=== PATIENT | female | born 1980 | race Hispanic/Latino ===

== ENCOUNTER 2019-02-15 03:25 | Emergency (ER) | payer OTHER ==
[~2019-02-15] VITALS: Ht 142.2 cm; Wt 97.1 kg
[~2019-02-15 03:25] MED LIST: ULTRACET TABLE1 EACH PO
[2019-02-15] MEDS ORDERED: ONDANSETRON HCL INJ 2MG/ML 2ML 2 MG/ML VIAL IV STA (03:37)
[2019-02-15] MEDS ORDERED: SODIUM CHLORIDE 0.9% 1000ML 1,000 ML IV STA (03:37)
[2019-02-15] MEDS ORDERED: MORPHINE SULFATE INJ 4 MG/ML INJ 1ML IV ONE (03:45)
[2019-02-15] MEDS ORDERED: MORPHINE SULFATE INJ 4 MG/ML INJ 1ML ONE (03:57)
[2019-02-15] MEDS ORDERED: ONDANSETRON HCL INJ 2MG/ML 2ML 2 MG/ML VIAL ONE (03:57)
[2019-02-15 04:37] LABS: BASOPHILS % 0.4 % (0.0-1.0); EOSINOPHILS # (AUTO) 0.2 (0.0-0.4); EOSINOPHILS % 1.6 % (0.0-6.0); HEMATOCRIT 38.5 % (34.2-44.1); HEMOGLOBIN 12.3 g/dL (12.0-16.0); LYMPHOCYTES # (AUTO) 2.7 (1.0-3.2); LYMPHOCYTES % 23.5 % (18.0-39.1); MEAN CORPUSCULAR HEMOGLOBIN 25.2 pg (28-32); MEAN CORPUSCULAR HGB CONC 31.9 g/dL (31-35); MEAN CORPUSCULAR VOLUME 78.9 fL (81-99); MONOCYTES # (AUTO) 0.7 (0.2-0.8); MONOCYTES % 5.8 % (4.4-11.3); NEUTROPHILS # (AUTO) 7.7 (2.1-6.9); NEUTROPHILS % 68.3 % (38.7-80.0); PLATELET COUNT 282 x10e3/uL (140-360); RED BLOOD COUNT 4.88 x10e6/uL (3.6-5.1); RED CELL DISTRIBUTION WIDTH 13.6 % (11.7-14.4)
[2019-02-15 04:45] LABS: BACTERIA,URINE MODERATE /HPF
[2019-02-15 04:46] LABS: CLARITY,URINE CLEAR (CLEAR); COLOR,URINE YELLOW (YELLOW); EPITHELIAL CELLS,URINE FEW /LPF; KETONES,URINE NEGATIVE (NEGATIVE); LEUKOCYTE ESTERASE ,URINE TRACE (NEGATIVE); NITRITE,URINE NEGATIVE (NEGATIVE); PROTEIN,URINE DIPSTICK NEGATIVE (NEGATIVE); URINE UROBILINOGEN 0.2 mg/dL (0.2 - 1)
[2019-02-15 04:47] LABS: BILIRUBIN,URINE NEGATIVE (NEGATIVE)
[2019-02-15 04:54] LABS: ALANINE AMINOTRANSFERASE 23 IU/L (0-55); ALBUMIN 3.4 g/dL (3.5-5.0); ALBUMIN/GLOBULIN RATIO 0.8 (0.8-2.0); ALKALINE PHOSPHATASE 99 IU/L (40-150); AMYLASE 72 U/L (25-125); ANION GAP 11.8 mmol/L (8-16); BLOOD UREA NITROGEN 13 mg/dL (7-26); BUN/CREATININE RATIO 19 (6-25); CARBON DIOXIDE 24 mmol/L (22-29); CHLORIDE 102 mmol/L (98-107); CREATININE, SERUM 0.68 mg/dL (0.57-1.11); EST GLOMERULAR FILTRATION RATE > 60 ML/MIN (60-); GLUCOSE 126 mg/dL (74-118); LIPASE 79 U/L (8-78); POTASSIUM 3.8 mmol/L (3.5-5.1); SODIUM 134 mmol/L (136-145)
[2019-02-15] MEDS ORDERED: IOPAMIDOL 370 MG/ML 200 ML INFUS..BTL INJ ONE (05:14)
[2019-02-15] MEDS ORDERED: SODIUM CHLORIDE 0.9% 50ML 50 ML ONE (05:14)
--- NOTE | 2019-02-15 05:42 | Diagnostic Imaging Report ---
EXAMINATION: CHEST SINGLE (PORTABLE) INDICATION: ^ABD PAIN COMPARISON: None FINDINGS: AP view TUBES and LINES: None. LUNGS: Lungs are not well inflated. There are bibasilar atelectasis. There is no evidence of pneumonia or pulmonary edema. PLEURA: No pleural effusion or pneumothorax. HEART AND MEDIASTINUM: The cardiomediastinal silhouette is unremarkable. BONES AND SOFT TISSUES: No acute osseous lesion. Soft tissues are unremarkable. UPPER ABDOMEN: No free air under the diaphragm. IMPRESSION: No acute thoracic abnormality. Signed by: Dr. Eric Crook M.D. on 02/15/2019 5:38 AM
--- NOTE | 2019-02-15 06:10 | Diagnostic Imaging Report ---
EXAM: CT Abdomen and Pelvis WITH contrast INDICATION: ^10D S/P LAP VANGIE, RUQ/FLANK PAIN COMPARISON: MR [facility] 02/02/2019. TECHNIQUE: Abdomen and pelvis were scanned utilizing a multidetector helical scanner from the lung base to the pubic symphysis after administration of IV contrast. Coronal and sagittal reformations were obtained. Routine protocol was performed. Scan was performed when during portal venous phase. IV CONTRAST: 100 mL of Isovue 370 ORAL CONTRAST: Water COMPLICATIONS: None RADIATION DOSE: Total DLP: 767.41 mGy*cm Estimated effective dose: (DLP x 0.015 x size factor) mSv CTDIvol has been reviewed. It is below the limits set by the Radiation Protocol Committee (RPC). Dose modulation, iterative reconstruction, and/or weight based adjustment of the mA/kV was utilized to reduce the radiation dose to as low as reasonably achievable. FINDINGS: LINES and TUBES: None. LOWER THORAX: Unremarkable HEPATOBILIARY: No focal hepatic lesions. No biliary ductal dilation. GALLBLADDER: Surgically absent. Trace free fluid along the inferior aspect of the liver. SPLEEN: No splenomegaly. PANCREAS: No focal masses or ductal dilatation. ADRENALS: No adrenal nodules KIDNEYS/URETERS: Kidneys enhance symmetrically. No hydronephrosis. No cystic or solid mass lesions. No stones. GI TRACT: No abnormal distention, wall thickening, or evidence of bowel obstruction. Appendix is not clearly identified. There is however no fat stranding or adenopathy in the right lower quadrant to suggest appendicitis. PELVIC ORGANS/BLADDER: 1.7 cm left anterior submucosal fibroid. LYMPH NODES: No lymphadenopathy. VESSELS: Unremarkable. PERITONEUM / RETROPERITONEUM: Trace free fluid along the inferior aspect of the right hepatic lobe. BONES: Unremarkable. SOFT TISSUES: Unremarkable. IMPRESSION: 1. Status post cholecystectomy. 2. Trace free fluid along the inferior aspect of the liver, which is within expected limits. If the pain continues or if there is suspicion for bile leak, a HIDA scan can be performed. Signed by: Dr. Eric Crook M.D. on 02/15/2019 6:06 AM
[2019-02-15] MEDS ORDERED: CEFTRIAXONE SOD 1 GM/NS 50 ML 50 ML IV ONE (07:00)
[2019-02-15] MEDS ORDERED: KETOROLAC TROMETHAMINE 30 MG/ML VIAL IV STA (07:16)
[2019-02-15 08:12] VITALS: BP 117/78
== END 2019-02-15 08:27 | disposition home or self-care (01) ==
LOC: ER 03:25
DX: R10.11 Right upper quadrant pain (principal); N30.91 Cystitis, unspecified with hematuria
CPT/HCPCS: 36415; 71045; 74177; 80053; 81001; 81025; 82150; 83690; 83735; 85025; 87040; 87086; 96374; 96375; 99284; J0696; J2270; J2405; J7030; Q9967

== ENCOUNTER 2019-02-16 00:09 | Observation (INO) | payer OTHER ==
[2019-02-16] VITALS (8 sets, daily range): BP systolic 104–129; BP diastolic 55–73
[~2019-02-16] VITALS: Ht 142.2 cm; Wt 100.9 kg
[2019-02-16] MEDS ORDERED: ONDANSETRON HCL INJ 2MG/ML 2ML 2 MG/ML VIAL IV STA (00:22)
[2019-02-16] MEDS ORDERED: SODIUM CHLORIDE 0.9% 1000ML 1,000 ML IV STA (00:22)
[2019-02-16] MEDS ORDERED: MORPHINE SULFATE INJ 4 MG/ML INJ 1ML IV ONE (00:30)
[2019-02-16 01:06] LABS: BASOPHILS % 0.4 % (0.0-1.0); EOSINOPHILS # (AUTO) 0.2 (0.0-0.4); EOSINOPHILS % 1.7 % (0.0-6.0); LYMPHOCYTES # (AUTO) 2.8 (1.0-3.2); LYMPHOCYTES % 29.5 % (18.0-39.1); MEAN CORPUSCULAR HEMOGLOBIN 25.4 pg (28-32); MEAN CORPUSCULAR HGB CONC 32.4 g/dL (31-35); MEAN CORPUSCULAR VOLUME 78.4 fL (81-99); MONOCYTES # (AUTO) 0.6 (0.2-0.8); NEUTROPHILS # (AUTO) 5.8 (2.1-6.9); PLATELET COUNT 258 x10e3/uL (140-360); RED BLOOD COUNT 4.72 x10e6/uL (3.6-5.1); RED CELL DISTRIBUTION WIDTH 13.7 % (11.7-14.4)
[2019-02-16 01:10] LABS: INR 0.94; PARTIAL THROMBOPLASTIN TIME 28.9 seconds (23.8-35.5); PROTHROMBIN TIME 13.1 seconds (11.9-14.5)
[2019-02-16 01:17] LABS: ALANINE AMINOTRANSFERASE 28 IU/L (0-55); ALBUMIN 3.1 g/dL (3.5-5.0); ALBUMIN/GLOBULIN RATIO 0.8 (0.8-2.0); ALKALINE PHOSPHATASE 92 IU/L (40-150); ANION GAP 10.8 mmol/L (8-16); BLOOD UREA NITROGEN 12 mg/dL (7-26); BUN/CREATININE RATIO 18 (6-25); CALCIUM 9.1 mg/dL (8.4-10.2); CARBON DIOXIDE 24 mmol/L (22-29); CHLORIDE 104 mmol/L (98-107); CREATINE KINASE 31 IU/L (29-168); CREATININE, SERUM 0.65 mg/dL (0.57-1.11); EST GLOMERULAR FILTRATION RATE > 60 ML/MIN (60-); GLUCOSE 111 mg/dL (74-118); POTASSIUM 3.8 mmol/L (3.5-5.1); SODIUM 135 mmol/L (136-145)
[2019-02-16] MEDS ORDERED: SODIUM CHLORIDE 0.9% 50ML 50 ML ONE (01:49)
[2019-02-16] MEDS ORDERED: IOPAMIDOL 370 MG/ML 200 ML INFUS..BTL INJ ONE (01:49)
--- NOTE | 2019-02-16 02:41 | Diagnostic Imaging Report ---
EXAM: CT Chest WITH contrast (PE Protocol) INDICATION: ^PE PROTOCOL, 2 WEEKS S/P LAP VANGIE, RUQ PLEURITIC D-DIMER COMPARISON: CT abdomen and pelvis 02/15/2019. Chest x-ray 02/15/2019. TECHNIQUE: Chest was scanned utilizing a multidetector helical scanner from the lung apex through the level of the diaphragm after administration of IV contrast. Thin section reconstructions were obtained with special concentration on the pulmonary arteries. Coronal and sagittal MIP reformations were obtained. Pulmonary embolism protocol was performed. IV CONTRAST: 100 mL of Isovue 370 COMPLICATIONS: None RADIATION DOSE: Total DLP: 585.43 mGy*cm Estimated effective dose: (DLP x 0.014 x size factor) mSv CTDIvol has been reviewed. It is below the limits set by the Radiation Protocol Committee (RPC). Dose modulation, iterative reconstruction, and/or weight based adjustment of the mA/kV was utilized to reduce the radiation dose to as low as reasonably achievable. FINDINGS: LINES/ TUBES: None. LUNGS AND AIRWAYS: Contrast bolus is adequate. No filling defect is identified within the pulmonary arteries to the segmental level. There is bibasilar atelectasis. Airways are normal. PLEURA: The pleural spaces are clear. HEART AND MEDIASTINUM: The thyroid gland is normal. No mediastinal, hilar or axillary lymphadenopathy. The heart is normal in size. There is no pericardial effusion. . Main pulmonary artery measures 2.3 cm in diameter and the ascending aorta measures 2.3 cm. UPPER ABDOMEN: Cholecystectomy clips. Otherwise upper abdomen is unremarkable. BONES: The visualized bony thorax is within normal limits. SOFT TISSUES: Unremarkable. IMPRESSION: 1. No pulmonary emboli. 2. Mild bibasilar atelectasis. Signed by: Dr. Eric Crook M.D. on 02/16/2019 2:37 AM
[2019-02-16] MEDS ORDERED: MORPHINE SULFATE 2 MG/ML SYR 1ML IV PRN (04:00)
[2019-02-16] MEDS: SODIUM CHLORIDE 0.9% 1000ML 1,000 ML IV SCH ×3 (05:10→17:42)
[2019-02-16] MEDS: CEFTRIAXONE SOD 1 GM/NS 50 ML 50 ML IV SCH (05:10)
--- NOTE | 2019-02-16 05:20 | NUR ---
Got report from Nola, ER nurse. Patient came via wheelchair accompanied by her . Call light within reach.
[2019-02-16] MEDS: MORPHINE SULFATE INJ 4 MG/ML INJ 1ML IV PRN ×3 (05:43→20:06)
[2019-02-16] MEDS ORDERED: PNEUMOCOCCAL VACCINE POLYVALENT 23 MCG/0.5 ML VIAL IM SCH (05:49)
[2019-02-16] MEDS ORDERED: INFLUENZA VIRUS VAC SPLIT INJ 0.5 ML SYR IM SCH (05:49)
--- NOTE | 2019-02-16 07:24 | NUR ---
Gave report to oncoming nurse. patient in bed. Call light within reach.
[2019-02-16] MEDS ORDERED: HYDROCODONE/APAP 7.5MG-325MG 1 EA TAB PO PRN (07:30)
--- NOTE | 2019-02-16 07:56 | History and Physical ---
CHIEF COMPLAINT: Right flank pain. HISTORY OF PRESENT ILLNESS: The patient is a 38-year-old female, recently underwent cholecystectomy, presented with complaints of pain in the right flank. She says started a couple of days ago. She had been doing well after surgery. She came to the emergency room for CT of the abdomen and pelvis, reveals small amount of fluid around the liver and also findings suggestive of urinary tract infection. CT of the chest did not reveal pulmonary embolus. The patient denies nausea, vomiting, or fever. PAST MEDICAL HISTORY: Otherwise unremarkable. She had a recent cholecystectomy with no other medical problems. ALLERGIES: SHE HAS NO KNOWN ALLERGIES. MEDICATIONS AT HOME: Pain medicine and she had been started on antibiotics recently. FAMILY HISTORY: Noncontributory. SOCIAL HISTORY: The patient does not smoke cigarettes or drink alcohol. REVIEW OF SYSTEMS: As stated above, otherwise was negative. PHYSICAL EXAMINATION: GENERAL: The patient is awake and alert, in no distress. VITAL SIGNS: Normal. She is afebrile. HEENT: Unremarkable. Sclerae are nonicteric. NECK: Supple with no masses. LUNGS: Equal breath sounds are clear bilaterally. CARDIAC: Regular rate and rhythm with no murmur. ABDOMEN: Soft. There is mild tenderness, right flank. There is no mass. There is no distention. There were no signs of peritonitis. EXTREMITIES: No edema. Pulses were palpable. NEUROLOGIC: Intact. LABORATORY TEST: The white blood cell count is normal. Hemoglobin and hematocrit normal differential was normal. Chemistries are entirely normal with normal liver function tests, slightly elevated lipase. Urinalysis reveals 11 to 20 white blood cells with moderate bacteria. ASSESSMENT: A 38-year-old female with right flank pain with UA suggestive of urinary tract infection. There is no sign of acute surgical abdomen. No sign of serious complication related to the recent surgery. No signs of pulmonary embolus. The patient is admitted to the hospital. She will be given IV antibiotics and pain medication, but there are no indications for any further intervention at this time. MD PHOENIX Padilla/ADALI /[phone]
--- NOTE | 2019-02-16 08:03 | NUR ---
pt resting in bed, rounded. no s/s distress at this time. will continue to monitor.
--- NOTE | 2019-02-16 12:25 | NUR ---
pt off unit for HIDA
--- NOTE | 2019-02-16 14:03 | NUR ---
Nutrition Screen Note RD Recommendation for Physician: -ADAT to low fat per MD. Plan of Care: RD following, monitoring for tolerance and adequacy Nutrition reason for involvement: Nutrition Risk Trigger-MST 2 Primary Diagnose(s): Abdominal pain, UTI PMH: S/P LAP CHOL on February 03 Ht: in Wt:lb BMI: kg/m2 IBW:lb RD Assessment: (02/16) 38 YOF admitted for ab pain and UTI. Pt was given CT in ER of the abdomen and pelvis, which revealed small amounts of fluid around the liver and also findings suggestive of urinary tract infection per H and P note. Pt stated ever since her surgery (Laparoscopic cholecystectomy on February 03), she tends to eat less and get lemus easily. Last EMR weight on February 02 was recorded at 225 lbs, pt is now 216 pounds suggesting a 9 pound weight loss within approximately 2 weeks (4% weight loss prior to admission). Pt denied N/V, has some constipation but denied any chewing or swallowing issues. Chart reviewed. Labs and meds reviewed. Will continue to monitor. Current Diet: NPO at time of visit Malnutrition Evaluation (02/16) The patient meets criteria for MILD protein-calorie malnutrition. Energy intake: <75% of estimated energy requirements for >5 days Weight loss: >2% in 1week (Acute) Fat loss: No signs of fat loss Muscle loss: No signs of muscle loss Supporting Evidence: Fluid accumulation: Unable to evaluate Functional Status: Unable to evaluate Diet Education Needs Assessment: Diet education not indicated. Nutrition Care Level: low Signed: Yolanda Hammonds RD, LD
[2019-02-16] MEDS: ONDANSETRON HCL INJ 2MG/ML 2ML 2 MG/ML VIAL IV PRN ×2 (14:15→20:06)
--- NOTE | 2019-02-16 15:29 | Diagnostic Imaging Report ---
Post-Cholecystectomy HIDA Scan Clinical information: ^S/P VANGIE, RUQ ABD PAIN MILD FREE FLUID, R/O BILE LEAK Report: Following intravenous administration of 6.6 mCi of technetium-99m mebrofenin, dynamic images of the abdomen in the anterior projection were obtained [id number] minutes. Perfusion to the liver is normal. Extraction of tracer by the liver parenchyma is mildly prolonged. Tracer appears in the biliary tract by 3 minutes post injection. Tracer is seen within the small bowel by 7 minutes. There is no tracer seen to suggest a remnant cystic duct. There is no reflux of tracer from the duodenum to the stomach seen during the imaging time. No tracer accumulates along the hepatic contours and none is seen in the right or left sang-colic gutters Impression: 1. No scan evidence of a bile leak. 2. No remnant cystic duct seen. Signed by: Dr. Diana Luong M.D. on 02/16/2019 3:26 PM
[2019-02-17] VITALS: BP 140/83
[2019-02-17] MEDS: SODIUM CHLORIDE 0.9% 1000ML 1,000 ML IV SCH (02:05)
[2019-02-17] MEDS: MORPHINE SULFATE INJ 4 MG/ML INJ 1ML IV PRN ×2 (02:10→07:39)
[2019-02-17] MEDS: ONDANSETRON HCL INJ 2MG/ML 2ML 2 MG/ML VIAL IV PRN ×2 (02:10→07:38)
[2019-02-17 04:00] VITALS: BP 126/85
[2019-02-17] MEDS: CEFTRIAXONE SOD 1 GM/NS 50 ML 50 ML IV SCH (04:16)
[2019-02-17 07:52] VITALS: BP 109/71
[2019-02-17 08:36] VITALS: BP 109/71
[2019-02-17] MEDS ORDERED: NORCO 5-325 TA1 EACH PO (10:26)
[2019-02-17] MEDS ORDERED: CEFUROXIME500 MG PO (10:28)
== END 2019-02-17 11:00 | disposition home or self-care (01) ==
LOC: ER 00:09 → ERHOLD 04:13 → IMCU 05:19
PROVIDERS: ADMIT Surgery; ATTEND Surgery
DX: N30.01 Acute cystitis with hematuria (principal); Z90.49 Acquired absence of other specified parts of digestive tract; Z98.890 Other specified postprocedural states; Z23 Encounter for immunization
CPT/HCPCS: 36415; 71260; 78226; 80053; 82550; 82553; 84484; 84702; 85025; 85379; 85610; 85730; 90732; 93005; 99284; A9537; G0009; G0378 ×2; J0696 ×2; J2270 ×2; J2405 ×2; J7030 ×2; Q9967

== ENCOUNTER 2024-06-20 21:17 | Emergency (ER) | payer BC, OTHER ==
[~2024-06-20] VITALS: Ht 142.2 cm; Wt 96.2 kg
[~2024-06-20 21:17] MED LIST changes: +CEFUROXIME500 MG PO; +NORCO 5-325 TA1 EACH PO
[2024-06-20 21:21] VITALS: PULSE 95; RESP 18; TEMP 98.4; O2SAT 100
== END 2024-06-20 23:37 | disposition home or self-care (01) ==
LOC: ER 21:22
DX: S46.812A Strain of other muscles, fascia and tendons at shoulder and upper arm level, left arm, initial encounter (principal); W03.XXXA Other fall on same level due to collision with another person, initial encounter; Y92.89 Other specified places as the place of occurrence of the external cause; E28.2 Polycystic ovarian syndrome
CPT/HCPCS: 99283